=== PATIENT | male | born 1970 | race Caucasian/White ===

== ENCOUNTER 2019-02-26 19:07 | Emergency (ER) | payer SELFPAY ==
[2019-02-26] MEDS ORDERED: IBUPROFEN 800 MG TABLET PO ONE (19:48)
--- NOTE | 2019-02-26 20:35 | RADIOLOGY REPORT (SQ) ---
EXAM DESCRIPTION: Left knee RadLex: XR KNEE 4 OR MORE VIEWS Views: 4 CLINICAL HISTORY: 48 years Male, pain COMPARISON: None. FINDINGS: Negative for acute fracture, dislocation, or radiopaque foreign body. No joint effusion. IMPRESSION: 1. No acute findings.
--- NOTE | 2019-02-26 20:45 | ER Document Report ---
HPI - HPI Patient complains to provider of: left knee pain Time Seen by Provider: 02/26/19 19:44 Pain Level: 4 Context: Patient is a 48-year-old male presents to the emergency department for left knee pain. Patient voices approximately 2 weeks ago he fell flat on his left knee. States he tripped on something that was on the ground. Patient voices he has continued with pain since which is why presents to the emergency room. Patient voices no other injuries. - REPRODUCTIVE Reproductive: DENIES: : Past Medical History - General Information source: Patient - Social History Smoking Status: Current Every Day Smoker Frequency of alcohol use: None Drug Abuse: Marijuana Family History: Reviewed & Not Pertinent Patient has suicidal ideation: No Patient has homicidal ideation: No Vertical Provider Document - CONSTITUTIONAL Agree With Documented VS: Yes Notes: GENERAL: Alert, interacts well. No acute distress. HEAD: Normocephalic, atraumatic. EYES: Pupils equal, round, and reactive to light. Extraocular movements intact. ENT: Oral mucosa moist, tongue midline. NECK: Full range of motion. Supple. Trachea midline. LUNGS: Clear to auscultation bilaterally, no wheezes, rales, or rhonchi. No respiratory distress. HEART: Regular rate and rhythm. No murmur ABDOMEN: Soft, non-tender. Non-distended. Bowel sounds present in all 4 quadrants. EXTREMITIES: Moves all 4 extremities spontaneously. No edema, normal radial and dorsalis pedis pulses bilaterally. No cyanosis. Generalized pain over palpation of anterior left knee, no pain on valgus or varus, no pain on anterior draw. No erythema or ecchymosis noted. No pain in left hip, left ankle. Full range of motion left hip, left ankle. BACK: no cervical, thoracic, lumbar midline tenderness. No saddle anesthesia, normal distal neurovascular exam. NEUROLOGICAL: Alert and oriented x3. Normal speech. cranial nerves II through XII grossly intact PSYCH: Normal affect, normal mood. SKIN: Warm, dry, normal turgor. No rashes or lesions noted. - INFECTION CONTROL TRAVEL OUTSIDE OF THE [place] IN LAST 30 DAYS: No Course - Re-evaluation Re-evalutation: 02/26/19 20:44 Knee X-Ray 02/26/19 19:48 IMPRESSION: 1. No acute findings. Discussed with patient negative x-rays. Discussed close follow-up with orthopedics for potential MRI. Knee immobilizer and crutches provided. Patient stable for discharge Procedures - Immobilization knee Pre-Proc Neuro Vasc Exam: Normal Immobilizer type: Knee immobilizer Performed by: PCT Post-Proc Neuro Vasc Exam: Normal Alignment checked and good: Yes Discharge - Discharge Clinical Impression: Knee injury Qualifiers: Encounter type: initial encounter Laterality: left Qualified Code(s): S89.92XA - Unspecified injury of left lower leg, initial encounter Condition: Stable Disposition: HOME, SELF-CARE Instructions: Use of Crutches ([facility]), Sprained Knee ([facility]), Knee Immobilizing Splint ([facility]), Ice & Elevation ([facility]) Additional Instructions: As we discussed you have been seen and treated in the emergency department for an injury to her left knee. X-rays revealed no signs of obvious broken bones. You should follow-up with orthopedics, phone numbers will be provided in this packet. Please use knee immobilizer and crutches as needed. Please take [id number] Tylenol Motrin for generalized pain. Follow-up with your primary care provider in the next 12 to 24 hours. Return to the emergency room for any concerns. Forms: Return to Work Referrals: SULTANA MARTIN MD [ACTIVE PROVISIONAL STAFF] - Follow up as needed
== END 2019-02-26 21:02 | disposition home or self-care (01) ==
LOC: ER 19:07
DX: S89.92XA Unspecified injury of left lower leg, initial encounter (principal); M25.562 Pain in left knee; F17.200 Nicotine dependence, unspecified, uncomplicated; W01.0XXA Fall on same level from slipping, tripping and stumbling without subsequent striking against object, initial encounter
CPT/HCPCS: 99283; 73564; L1830